=== PATIENT | female | born 1995 | race Caucasian/White ===

== ENCOUNTER 2018-04-27 23:54 | Emergency (ER) | payer MEDICAID ==
[~2018-04-27] VITALS: Ht 185.4 cm; Wt 55.5 kg
[2018-04-28] MEDS ORDERED: CYCL-1 PO (00:34)
[2018-04-28] MEDS ORDERED: IBUP-1984 PO (00:34)
[2018-04-28] MEDS ORDERED: ketorolac trometh. 30mg/ml inj. IM ONE (00:35)
[2018-04-28] MEDS ORDERED: ketorolac trometh inj. 60 MG/2 ML VIAL IM ONE (00:35)
[2018-04-28 00:52] VITALS: BP 106/69
== END 2018-04-28 00:53 | disposition home or self-care (01) ==
LOC: ER 23:55 → EEVIPCON 23:55 → ER 04-28 00:53
DX: S46.912A Strain of unspecified muscle, fascia and tendon at shoulder and upper arm level, left arm, initial encounter (principal); M62.838 Other muscle spasm; M54.2 Cervicalgia; W01.198A Fall on same level from slipping, tripping and stumbling with subsequent striking against other object, initial encounter; Y93.89 Activity, other specified; Y92.098 Other place in other non-institutional residence as the place of occurrence of the external cause; Y99.8 Other external cause status
CPT/HCPCS: 73030; 96372; 99284; J1885